=== PATIENT | female | born 1960 | race Two or more races ===

== ENCOUNTER 2021-08-10 08:00 | Outpatient (CLI) | payer OTHER | END 2021-08-10 08:30 | disposition home or self-care (01) | LOC: PPH VACUNA 08:00 | PROVIDERS: ATTEND Emergency Medicine Pediatric Emergency Medicine | DX: Z23 Encounter for immunization (principal) ==

== ENCOUNTER 2021-08-30 11:36 | Outpatient (CLI) | payer OTHER | END 2021-08-30 15:00 | disposition home or self-care (01) | LOC: LAB 11:36 | PROVIDERS: ATTEND Preventive Medicine Occupational Medicine | DX: Z03.818 Encounter for observation for suspected exposure to other biological agents ruled out (principal) ==

== ENCOUNTER 2021-10-04 09:07 | Outpatient (CLI) | payer OTHER | END 2021-10-04 09:08 | disposition home or self-care (01) | LOC: NUCLEAR 09:07 | DX: I73.9 Peripheral vascular disease, unspecified (principal) ==